=== PATIENT | female | born 1955 | race Caucasian/White ===

== ENCOUNTER 2017-04-27 16:58 | Emergency (ER) | payer OTHER ==
[~2017-04-27] VITALS: Ht 160 cm; Wt 93.2 kg
[2017-04-27 18:11] VITALS: BP 148/89
== END 2017-04-27 18:11 | disposition home or self-care (01) ==
LOC: ED 16:58
DX: L03.113 Cellulitis of right upper limb (principal); Z88.1 Allergy status to other antibiotic agents

== ENCOUNTER 2017-04-29 16:52 | Inpatient (IN) | payer OTHER ==
[~2017-04-29] VITALS: Ht 160 cm; Wt 86.0 kg
--- NOTE | 2017-04-29 17:57 | NUR ---
PT BIB SELF C/C RT HAND IRRITATION HERE FOR RE CHECK DR WILKERSON AT BEDSIDE TO [place]
--- NOTE | 2017-04-29 18:24 | NUR ---
XRAY AT BEDSIDE
[2017-04-29 18:35] LABS: BASOPHIL % 0.5 % (0-2); PLATELET COUNT 297 x10^3mcL (130-400); RED CELL DISTRIBUTION WIDTH 13.5 % (11.5-14.5)
--- NOTE | 2017-04-29 18:41 | NUR ---
PLEASE ENTER FULL NAMES OF EMBOSSOGRAPH OPERATOR/RN Patient data collected by (EMBOSSOGRAPH OPERATOR): Alisha GURROLA Assessment reviewed and completed by (RN): Desire VARGAS
--- NOTE | 2017-04-29 18:42 | NUR ---
DR WILKERSON AT BEDSIDE TO GO OVER PLAN OF CARE
--- NOTE | 2017-04-29 18:48 | NUR ---
IV ANTIBIOTIC BEGUN ORDERED. MD @ BEDSIDE FOR I&D & WOUND CULTURE. VERY SMALL AMOUNT PURULUNT DRAINAGE. PACKING PLACED.
[2017-04-29 19:13] LABS: CALCIUM 9.2 mg/dL (8.5-10.1); CARBON DIOXIDE 24.6 mmol/L (21-32); CHLORIDE SERUM 101 mmol/L (98-107); CREATININE SERUM 0.6 mg/dL (0.6-1.0); GFR1 > 60 mL/min; GLUCOSE SERUM 100 mg/dL (74-106); POTASSIUM SERUM 4.1 mmol/L (3.5-5.1); SODIUM SERUM 134 mmol/L (136-145)
--- NOTE | 2017-04-29 19:15 | NUR ---
RECEIVED REPORT FROM TRACEY HICKS.
[2017-04-29 19:25] LABS: ALBUMIN 3.7 g/dL (3.4-5.0); ALKALINE PHOSPHATASE 105 U/L (46-116); ALT/SGPT 23 U/L (14-59); AST/SGOT 15 U/L (15-37); BILIRUBIN TOTAL 0.4 mg/dL (0.20-1.00); C REACTIVE PROTEIN 2.9 mg/dL (<=0.9); TOTAL PROTEIN, SERUM 7.9 g/dL (6.4-8.2)
[2017-04-29 19:30] LABS: CK-MB 2.6 ng/mL (0-3.6)
--- NOTE | 2017-04-29 19:47 | NUR ---
REPORT GIVEN TO COURTNEY HICKS.
--- NOTE | 2017-04-29 20:00 | NUR ---
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
[2017-04-29 20:06] VITALS: BP 135/80
[2017-04-29 20:08] LABS: T3 TOTAL 0.97 ng/mL
[2017-04-29 20:09] LABS: FREE T4 1.18 ng/dL (0.76-1.46); T4(THYROXINE) 10.9 ug/dL (4.7-13.3)
[2017-04-29 20:22] LABS: CHOLESTEROL/HDL RATIO 2.9; MAGNESIUM 2.2 mg/dL (1.8-2.4); PHOSPHOROUS 3.8 mg/dL (2.5-4.9)
--- NOTE | 2017-04-29 21:00 | NUR ---
ALSO GIVEN NORCO FOR PAIN ON R PALM,WOUND.
--- NOTE | 2017-04-29 21:30 | NUR ---
PATIENT FAMILY CAME BY,BROUGHT IN AND OUT,WAS OFFFERD FOOD HERE BUT REFUSED,IN AND OUT ATE INSTEAD.WAS GIVEN HER PM MEDS,ADMIT ORDER.ALSO FEDERICO.
[2017-04-29 21:32] VITALS: BP 134/69
[2017-04-29 21:52] LABS: microscopic required? YES; urine erythrocyte NEGATIVE (NEGATIVE)
--- NOTE | 2017-04-29 22:37 | NUR ---
PATIENT C/O NAUSEATED PER DR CODY.MADE AWARE THAT SHE HAD NORCO,SAYS MAYBE SHE IS NOT LIKING NORCO,BUT HAD ALSO BURGER.SAYS ITS NOT FROM BURGER.GIVEN ZOFRAN IVP.PATIENT IS MRSA WOUND.PUT ON ISOLATION ON ADMIT.
--- NOTE | 2017-04-30 00:31 | NUR ---
SLEEPING COMFORTABLY.USING MULTIPLE PILLOWS.QUIET ENVIRONMENT MAINTAINED.
--- NOTE | 2017-04-30 05:40 | NUR ---
I AND O MEASURED.NO DISTRESS THIS SHIFT,SHE DO NOT LIKE LIBAN,SAYS IT MAKE HER NAUSEOUS.
[2017-04-30 06:11] VITALS: BP 140/65
[2017-04-30 06:15] LABS: BASOPHIL % 0.3 % (0-2); PLATELET COUNT 251 x10^3mcL (130-400); RED CELL DISTRIBUTION WIDTH 13.4 % (11.5-14.5)
[2017-04-30 06:24] LABS: CALCIUM 8.8 mg/dL (8.5-10.1); CHLORIDE SERUM 105 mmol/L (98-107); CREATININE SERUM 0.6 mg/dL (0.6-1.0); GFR1 > 60 mL/min; GLUCOSE SERUM 104 mg/dL (74-106); POTASSIUM SERUM 4.8 mmol/L (3.5-5.1); SODIUM SERUM 138 mmol/L (136-145)
--- NOTE | 2017-04-30 07:53 | NUR ---
RECEIVED AWAKE, ALERT AND ORIENTED. IN NO ACUTE DISTRESS. VS WNL. IVF INFUSING WELL AND SITE CLEAR. RT HAND WOUND DRESSING FELL OF. PT REPORTED WAITING FOR ULTRA SOUND. WILL RE-DRESS WHEN COMPLETED. NO C/O PAIN OR DISCOMFORT AT THIS TIME. CALL LIGHT WITHIN REACH. WILL CONTINUE W/PLAN OF CARE.
--- NOTE | 2017-04-30 09:00 | NUR ---
AM ROUNDS DONE BY DR. GONZALEZ AND MEDICAL TEAM. PLAN TO CONTINUE W/CURRENT TX. PT AGREED WITH PLAN.
[2017-04-30 13:11] VITALS: BP 123/49
--- NOTE | 2017-04-30 13:47 | NUR ---
P.T. NOTES P.T. EVAL ORDER CANCELLED.
[2017-04-30 16:29] VITALS: Ht 160 cm; Wt 86.0 kg
--- NOTE | 2017-04-30 16:31 | NUR ---
RESTING IN NO DISTRESS,DENIES PAIN OR DISCOMFORT. RT HAND ELEVETED WITH PILLOW.
[2017-04-30 17:02] VITALS: BP 124/53
--- NOTE | 2017-04-30 18:20 | NUR ---
PT REMAINS IN NO DISTRESS. AWAKE, ALERT AND ORIENTED. NO CHANGES IN VS. NO C/O PAIN OR DISCOMFORT AT THIS TIME. IVF INFUSING WELL AND SITE CLEAR. CALL LIGHT WITHIN REACH. WILL BE ENDORSED TO INCOMING SHIFT.
--- NOTE | 2017-04-30 19:45 | NUR ---
RECEIVED PT IN BED AWAKE, ALERT, ORIENTED X4. SPEECH CLEAR. ABLE TO MAKE NEEDS KNOWN. DENIES PAIN OR DISCOMFORT. RIGHT HAND WRAPPED WITH GAUZE, DRESSING IS CDI. PT IS ISOLATION PRECAUTIONS FOR MRSA OF WOUND TO RIGHT HAND. IVF INFUSING WELL AT 125ML/HR WITH NS. SHIFT ASSESSMENT COMPLETED. CALL LIGHT WITHIN REACH. BED IS IN LOWEST POSITION. WILL CONTINUE TO MONITOR CLOSELY.
[2017-04-30 21:30] VITALS: BP 141/65
--- NOTE | 2017-04-30 21:30 | NUR ---
ZOFRAN GIVEN TO PT FOR NAUSEA. ALL DUE MEDS GIVEN AT THIS TIME. FSBS IS 111. CALL LIGHT WITHIN REACH. WILL CONTINUE TO MONITOR CLOSELY.
--- NOTE | 2017-05-01 03:00 | NUR ---
PT APPEARS TO BE SLEEPING IN NO DISTRESS. RIGHT HAND REMAINS WRAPPED, DRESSING CDI. IVF ONGOING. CALL LIGHT WITHIN REACH. WILL CONTINUE TO MONITOR CLOSELY.
[2017-05-01 05:23] VITALS: BP 133/60
[2017-05-01 06:21] LABS: BASOPHIL % 0.4 % (0-2); PLATELET COUNT 228 x10^3mcL (130-400); RED CELL DISTRIBUTION WIDTH 13.6 % (11.5-14.5)
--- NOTE | 2017-05-01 06:29 | NUR ---
PT SLEPT ON AND OFF THROUGH OUT THE NIGHT. NO DISTRESS NOTED. IVF ONGOING. CALL LIGHT WITHIN REACH. BED IS IN LOWEST POSITION. WILL CONTINUE TO MONITOR CLOSELY.
[2017-05-01 09:29] VITALS: BP 141/69
--- NOTE | 2017-05-01 14:00 | NUR ---
DR GONZALEZ AND MED TEAM DID INSC/DRAIN OF RIGHT HAND WOUND AT BEDSIDE. PT WELL TOLERATED,DIDN'T ASK FOR PAIN MED WHEN OFFERED. DRESSING INTACT AND CLEAN.
[2017-05-01 17:03] VITALS: BP 138/74
--- NOTE | 2017-05-01 17:30 | NUR ---
BP 80/47, MAP 56. DR LUTZ MADE AWARE, AWAITING NEW ORDERS.
--- NOTE | 2017-05-01 19:15 | NUR ---
PT RESTING COMFORTABLY AT THIS TIME,DENIES PAIN,VITALS' NORMAL,DRESSING TO RIGHT HAND CLEAN AND INTACT. BEDSIDE ENDORSEMENT DONE WITH [facility] NURSE SOFI.
--- NOTE | 2017-05-01 19:52 | NUR ---
PATIENT AWAKE IN BED. RESPIRATION EVEN AND UNLABORED, ON ROOM AIR. ONGOING 0.9% NS AT 125 CC/HR INFUSING WELL AT THE LEFT ANTECUBITAL AREA. VOIDING FREELY WITHOUT DIFFICULTY. AMBULATORY. S/P I&D TODAY OF RIGHT HAND WOUND COVERED WITH CDI DRESSING. WILL CONTINUE TO MONITOR.
[2017-05-01 21:07] VITALS: BP 124/68
[2017-05-02 05:27] VITALS: BP 145/66
[2017-05-02 05:51] LABS: BASOPHIL % 0.7 % (0-2); PLATELET COUNT 247 x10^3mcL (130-400); RED CELL DISTRIBUTION WIDTH 13.8 % (11.5-14.5)
--- NOTE | 2017-05-02 06:41 | NUR ---
PATIENT RESTING IN BED. RESPIRATION EVEN AND UNLABORED, ON ROOM. DENIES PAIN. DRESSING TO RIGHT HAND INTACT. IV SITE PATENT AND INTACT. ASSISTED WITH NEEDS. SAFETY OBSERVED. PLACED CALL LIGHT WITHIN REACH AT ALL TIMES. MAINTAINED ON CONTACT ISOLATION FOR MRSA OF WOUND.
--- NOTE | 2017-05-02 08:10 | NUR ---
AT 0715 - RECEIVED PATIENT FROM NIGHT NURSE. PATIENT AWAKE, ALERT AND ORIENTED X 4. R HAND DRESSING DRY AND INTACT. DENIES ANY PAIN. IV INFUSING NS AT 30ML/HR. ON CONTACT ISOLATION FOR MRSA R HAND WOUND.
--- NOTE | 2017-05-02 08:14 | NUR ---
SEEN BY DR PATINO DURING MORNING ROUNDS. MEDICAL TEAM DOCTORS, [facility] AND MYSELF PRIMARY NURSE ALSO PRESENT. DR PATINO SPOKE WITH PATIENT ABOUT PLAN OF TREATMENT UPON DISCHARGE. TO BE DC TOTAY WITH PO BACTIM AND TO FOLLOW-UP WITH PCP ON SUNDAY. INSTRUCTED TO KEEP ARM ELEVATED. PATIENT VERBALIZED AGREEMENT.
[2017-05-02 08:30] VITALS: BP 129/67
[2017-05-02] MEDS ORDERED: MOT800 PO (11:43)
[2017-05-02] MEDS ORDERED: COL100 PO (11:43)
[2017-05-02] MEDS ORDERED: LAC PO (11:44)
[2017-05-02] MEDS ORDERED: THERA TABS1 TAB PO (11:45)
[2017-05-02] MEDS ORDERED: BACTRIM DS1 TAB PO (11:49)
[2017-05-02 12:20] VITALS: BP 129/67
--- NOTE | 2017-05-02 12:32 | NUR ---
RECEIVED DISCHARGE ORDERS. IV INFUSION DISCONTINUED. PATIENT WILL EAT LUNCH. CONTACTING DOCTOR TO VERIFY WOUND CARE/DRESSING CHANGE.
--- NOTE | 2017-05-02 13:20 | NUR ---
SPOKE WITH DR MELISSA REGARDING DRESSING TO HAND. AFTER PHOTO DOCUMENTATION COVER WITH GAUZE DRESSING. PATIENT WILL FOLLOW-UP WITH PCP ON SUNDAY.
--- NOTE | 2017-05-02 13:37 | NUR ---
R HAND WOUND PHOTO DOCUMENTED. COVERED WITH FLUFF GAUZE AND WRAPED IN GAUZE BANDAGE. PATIENT INSTRUCTED IN CARE OF WOUND.
--- NOTE | 2017-05-02 14:05 | NUR ---
AT 1350 - PRINTED DISCHARGE INSTRUCTIONS GIVEN AND EXPLAINED TO PATIENT. ELECTRONIC PRESCRIPTION RECEIVED BY PATIENT'S PREFERRED PHARMACY. IV CATHETER REMOVED INTACT. AT 1357 - DISCHARGED HOME WITH DAUGHTER. ESCORTED AMBULATORY TO DISCHARGE OFFICE BY [facility].
== END 2017-05-02 14:00 | disposition home or self-care (01) | DRG 579 ==
LOC: ED 16:52 → MU 19:14 → DU 19:14 → MU 04-30 10:26
PROVIDERS: Family Medicine; Specialist; ADMIT Student in an Organized Health Care Education/Training Program
PROC: 0H9FXZZ Drainage of Right Hand Skin, External Approach (ICD-10-PCS; 2017-04-29)
PROC: 0J9J0ZZ Drainage of Right Hand Subcutaneous Tissue and Fascia, Open Approach (ICD-10-PCS; principal; 2017-05-01)
DX: L03.113 Cellulitis of right upper limb (principal); N17.0 Acute kidney failure with tubular necrosis; N39.0 Urinary tract infection, site not specified; E87.1 Hypo-osmolality and hyponatremia; R73.03 Prediabetes; E78.5 Hyperlipidemia, unspecified; B95.62 Methicillin resistant Staphylococcus aureus infection as the cause of diseases classified elsewhere; D64.9 Anemia, unspecified; E02 Subclinical iodine-deficiency hypothyroidism; M17.0 Bilateral primary osteoarthritis of knee; M19.041 Primary osteoarthritis, right hand; Z68.33 Body mass index [BMI] 33.0-33.9, adult; Z87.891 Personal history of nicotine dependence
CPT/HCPCS: 82962; 83880; 84439; J1956; J2001; J2405; J3370; J3490; J7030; Q0092

== ENCOUNTER 2018-04-25 14:27 | Emergency (ER) | payer OTHER ==
[~2018-04-25] VITALS: Ht 160 cm; Wt 88.6 kg
[~2018-04-25 14:27] MED LIST: BACTRIM DS1 TAB PO; COL100 PO; LAC PO; MOT800 PO; THERA TABS1 TAB PO
[2018-04-25 14:34] VITALS: Ht 160 cm; Wt 88.6 kg
[2018-04-25 18:44] VITALS: BP 128/77
== END 2018-04-25 18:44 | disposition home or self-care (01) ==
LOC: ED 14:27
DX: S13.9XXA Sprain of joints and ligaments of unspecified parts of neck, initial encounter (principal); S33.5XXA Sprain of ligaments of lumbar spine, initial encounter; S00.83XA Contusion of other part of head, initial encounter; S50.812A Abrasion of left forearm, initial encounter; S50.811A Abrasion of right forearm, initial encounter; V89.2XXA Person injured in unspecified motor-vehicle accident, traffic, initial encounter; W22.11XA Striking against or struck by driver side automobile airbag, initial encounter; Y93.I9 Activity, other involving external motion; Y92.89 Other specified places as the place of occurrence of the external cause; Y99.8 Other external cause status